=== PATIENT | female | born 1990 | race Caucasian/White ===

== ENCOUNTER 2023-02-07 14:19 | Outpatient (CLI) | payer MEDICAID, SELFPAY ==
--- NOTE | 2023-02-07 14:00 | DI.RAD_ITS ---
Exam(s) XR KNEE RT 3V AP,LAT,JOHNNY EXAM: XR KNEE RT 3V AP,LAT,JOHNNY CLINICAL HISTORY: RIGHT KNEE PAIN. TECHNIQUE: 2D digital imaging was performed. COMPARISON: No exams were available for comparison FINDINGS: 3 views There is no evidence of fracture or obvious joint effusion. No joint space narrowing. No that it os seous lesions. Sclerotic density outer aspect of medial femoral condyle has appearance of benign [place]. No osteophytes. Bone density normal. Soft tissue swelling laterally. This may be in the region of the biceps femora cyst component of the lateral collateral ligament complex. IMPRESSION: No significant osseous findings nor obvious joint effusion. Lateral soft tissue findings as described above, possibly related to the lateral collateral ligament complex. DATA REPOSITORY: RADIATION DOSE DELIVERED:
== END 2023-02-07 14:20 | disposition home or self-care (01) ==
LOC: DIORS 14:19
PROVIDERS: PCP Registered Nurse; Referring Provider Registered Nurse; Visit Provider Student in an Organized Health Care Education/Training Program
DX: M25.561 Pain in right knee (principal)
CPT/HCPCS: 73562

== ENCOUNTER 2023-02-14 01:47 | Outpatient (CLI) | payer MEDICAID, SELFPAY ==
--- NOTE | 2023-02-14 15:30 | DI.MRI_ITS ---
Exam(s) MR LOWER JOINT RT WO EXAM: MR LOWER JOINT RT WO CLINICAL HISTORY: eval for chronic LCL versus distal IT band injury,internal derangement,. TECHNIQUE: Multiplanar multisequence MRI was performed. COMPARISON: CR XR KNEE RT 3V AP,LAT,JOHNNY from 02/07/2023 FINDINGS: BONES: There is no fracture or contusion pattern. JOINTS: No joint effusion is present. Articular cartilage: Patellofemoral joint: Articular cartilage is unremarkable. Medial femoral tibial joint: Articular cartilage is unremarkable. Lateral femoral tibial joint: Articular cartilage is unremarkable. TENDONS: Extensor mechanism: Unremarkable. Medial retinaculum: Unremarkable. Lateral retinaculum: Unremarkable. Popliteus: Unremarkable. MUSCLES: Unremarkable. MENISCI: The medial meniscus is unremarkable. The lateral meniscus shows high signal in the body the re is adjacent multiloculated cystic collection measuring roughly 2.5 cephalo caudad by 0.7 cm transv erse by 2 cm AP.. SOFT TISSUES: Unremarkable. LIGAMENTS: Anterior Cruciate: Unremarkable. Posterior Cruciate: Unremarkable. Medial Collateral:Unremarkable. Lateral Collateral: Unremarkable. OTHER: IMPRESSION: Tear of the body of the lateral meniscus with adjacent meniscal cyst. No ligament tear. DATA REPOSITORY:
== END 2023-02-14 02:07 ==
LOC: DI 01:47
PROVIDERS: PCP Registered Nurse; Visit Provider Student in an Organized Health Care Education/Training Program
DX: M23.061 Cystic meniscus, other lateral meniscus, right knee (principal)
CPT/HCPCS: 73721

== ENCOUNTER 2023-04-27 06:12 | Day surgery (SDC) | payer OTHER, SELFPAY ==
--- NOTE | 2023-03-08 07:35 | W.PM.DSUDISC ---
Discharge Plan Disposition Patient Disposition: Home Discharge Details Attending Provider: Walter Ward Primary Care Provider: JO-ANN VIDALES Home Meds and New Rx's Prescriptions: No Action cholecalciferol (vitamin D3) 25 mcg (1,000 unit) capsule 25 mcg PO DAILY magnesium chloride 64 mg tablet,delayed release (DR/EC) 64 mg PO DAILY Donna 24 Fe 1 mg-20 mcg (24)/75 mg (4) tablet 1 tab PO DAILY fluoxetine 60 mg tablet 60 mg PO DAILY omeprazole 10 mg capsule,delayed release(DR/EC) 10 mg PO DAILY lorazepam 1 mg tablet 1 mg PO DAILY PRN acetylcysteine [NAC] 600 mg capsule 600 mg PO DAILY Discharge Orders Discharge Orders: Discharge Order (Routine); Ordered 03/08/23 Ordered By: Walter Ward
--- NOTE | 2023-03-08 07:35 | W.PM.OP ---
Operative Note Operative Note Refer to Anesthesia Record
--- NOTE | 2023-03-08 09:27 | PDOC.ANES ---
Date of service: 03/08/23 Time of Service: 09:27 Anesthesia Note Report Anesthesia Note: Patient reporting diffuse hives of unknown origin startign last night. Discussed with Radha Collier and Jeannette Ward related to new onset hives and decision made to postpone surgery. Recommended patient document extent of hives, take a benadryl and watch. Recommended if hives worsen or symptoms worsen to call 911 or go to ER. Office will coordinate rescheduling surgery.
[2023-04-27] VITALS (15 sets, daily range): BP systolic 88–128; BP diastolic 36–83; PULSE 73–93; RESP 12–24; TEMP 36.2–36.7; O2SAT 95–100; BMI 32.8
[2023-04-27] MEDS: Lactated Ringers 1,000 ML 30 ML IV (06:46)
--- NOTE | 2023-04-27 06:46 | W.ANESPRE ---
General Info Date of Service Date Performed: 04/27/23 Height: 5 ft 2 in Weight: 81.3 kg Body Mass Index (BMI): 32.8 Surgical Procedure: Operation Date: 04/27/23 07:40 Proposed Procedure Side Surgeon p Knee Arthroscopy, Possible Lateral Meniscus Repair, Possible Para-meniscal Cyst Excision Right Walter Ward MD Meds Allergies and Home Medications Allergies Allergy/AdvReac Type Severity Reaction Status Date / Time bacitracin Allergy Intermediate Hives Verified 04/27/23 06:28 Penicillins Allergy Intermediate Hives Verified 04/27/23 06:28 Home Medication Medication Instructions Recorded cholecalciferol (vitamin D3) 25 25 mcg PO DAILY 02/07/23 mcg (1,000 unit) capsule fluoxetine 60 mg tablet 60 mg PO DAILY 02/07/23 lorazepam 1 mg tablet 1 mg PO DAILY PRN 02/07/23 magnesium chloride 64 mg 64 mg PO DAILY 02/07/23 (magnesium chloride) tablet,delayed release norethindrone 1 mg-ethinyl 1 tab PO DAILY 02/07/23 estradiol 20 mcg (24)-iron 75 mg (4) tablet (Donna 24 Fe) omeprazole 10 mg capsule,delayed 10 mg PO DAILY 02/07/23 release acetylcysteine 600 mg capsule (NAC) 600 mg PO DAILY 03/06/23 aspirin 81 mg capsule 81 mg PO DAILY prevent blood clot 04/27/23 14 days #14 caps naproxen 250 mg tablet 250 - 500 mg PO BID PRN moderate 04/27/23 pain and swelling #40 tabs oxycodone 5 mg tablet 5 - 10 mg PO .q4-6h PRN severe 04/27/23 pain #18 tabs Current Visit Medications: Current Medications Generic Name Dose Route Start Last Admin Trade Name Freq PRN Reason Stop Dose Admin Ringer's Solution 1,000 mls @ 30 mls/hr 04/27/23 06:00 IV 05/26/23 23:59 INFUSION STUART Cefazolin Sodium/Dextrose 2 gm in 50 mls @ 100 mls/hr 04/27/23 06:00 Ancef Duplex IVPB 04/27/23 16:00 PREOP STUART IV Miscellaneous Supplies 1 each 04/27/23 06:00 Iv Access IV 05/26/23 23:59 DIRECTED STUART Sodium Chloride 0 ml 04/27/23 06:00 Normal Saline Flush 10 Ml Syr IV 05/26/23 23:59 PRN PRN Sodium Chloride 0 ml 04/27/23 06:00 Normal Saline 10 Ml Vial IJ 05/26/23 23:59 DIRECTED PRN Sterile Water 0 ml 04/27/23 06:00 Water,Injection,Sterile 10 Ml Vial IJ 05/26/23 23:59 DIRECTED PRN PFSH Active Problems Active Problems: Problem Status Onset Code Cyst of lateral meniscus of right knee M23.000 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 states she had kidney blockage removed 1995-per pt states she has not had any issues since then History of surgery on wrist dequervains synovitis (B) Tobacco Smoking/Tobacco Use Status: Never Alcohol Alcohol Intake: current Alcohol intake frequency: a few times a month Substance Use Substance use: Never Substance use type: does not use Vital Signs and Lab Results Vital Signs Most Recent Vital Signs in EMR: Most Recent Vital Signs Temp Pulse Resp BP Pulse Ox 36.2 C L 93 H 16 124/83 97 04/27/23 06:21 04/27/23 06:21 04/27/23 06:21 04/27/23 06:21 04/27/23 06:21 Point of Care Results Point of Care Results: POC- Test(urine) Negative 04/27/23 06:21 Lab Results Blood Type / Crossmatch: No Data to Display Complete Blood Count: No Data to Display Complete Metabolic Panel: No Data to Display Liver Function Panel: No Data to Display Coagulation Panel: No Data to Display Cardiac Panel: No Data to Display Arterial Blood Gas: No Data to Display Venous Blood Gas: No Data to Display Pancreas Panel: No Data to Display Thyroid Panel: No Data to Display Infectious Disease: No Data to Display Blood Cultures: No Data to Display Toxicology Panel: No Data to Display Panel: No Data to Display Anesthesia Assessment and Plan Anesthesia History Personal History: No History of Anesthesia Complications Family History: No Family History of Anesthesia Complications Exercise Tolerance Exercise Tolerance: Metabolic Equivalents>4 Pertinent Negatives Pertinent Negatives: No Symptoms of GERD Cardiac & Pulmonary Exam Cardiac Exam: Normal S1/S2 Heart Sounds Pulmonary Exam: Clear Bilateral Breath Sounds Implantable Cardiac Device Does patient have a Pacemaker or an ICD?: No Airway Exam Known Difficult Airway: No Mallampati Class: 2 Mouth Opening: Normal (> 3cm) Thyromental Distance: Greater than 3 cm Neck Range of Motion: Full ROM Neck Circumference: Normal Teeth Condition: Normal Dentition ASA Classification ASA Score: ASA 2 Emergency Case?: No NPO Status NPO Status: NPO Clears >2 hours, Solids >8 hours Status Status: Negative HCG Anesthesia Plan Resuscitation Status: Full Code Anesthesia Technique: General Anesthesia Airway Planned: LMA Monitors Used: Standard Monitors
--- NOTE | 2023-04-27 07:05 | PDOC.DSDIS_ITS ---
Date of service: 04/27/23 Time of Service: 10:00 Discharge Plan Disposition Patient Disposition: Home Condition: Stable Discharge Details Attending Provider: Walter Ward Primary Care Provider: JO-ANN VIDALES Home Meds and New Rx's Prescriptions: New aspirin 81 mg capsule 81 mg PO DAILY 14 Days Qty: 14 0RF naproxen 250 mg tablet 250 - 500 mg PO BID PRN (Reason: moderate pain and swelling) Qty: 40 0RF oxycodone 5 mg tablet 5 - 10 mg PO .q4-6h PRN (Reason: severe pain) Qty: 18 0RF Continued cholecalciferol (vitamin D3) 25 mcg (1,000 unit) capsule 25 mcg PO DAILY magnesium chloride 64 mg tablet,delayed release (DR/EC) 64 mg PO DAILY Donna 24 Fe 1 mg-20 mcg (24)/75 mg (4) tablet 1 tab PO DAILY fluoxetine 60 mg tablet 60 mg PO DAILY omeprazole 10 mg capsule,delayed release(DR/EC) 10 mg PO DAILY lorazepam 1 mg tablet 1 mg PO DAILY PRN acetylcysteine [NAC] 600 mg capsule 600 mg PO DAILY Discharge Instructions Additional Instructions: Surgery: Right knee arthroscopy with lateral menisco-capsular repair and open para-meniscal cyst excision Activity: Weightbearing in full extension-only for 6 weeks. Use crutches as nee ded to protect knee. Seated/ non-weight bearing flexion 0-90 degrees maximum for 6 weeks. 120 degrees maximum flexion for 8 weeks. Spin/bike after 8 weeks. No weighted deeper flexion (squats, lunges) for 10 weeks. Prescriptions: Aspirin 81 mg take 1 daily starting tomorrow to prevent a blood clot for 14 days Naproxen 250 mg take 1-2 every 12 hours with a meal as needed for moderate pain Oxycodone 5 mg take 1-2 every 4-6 hours as needed for severe pain You may use [id number] Tylenol (acetaminophen) as needed for mild pain. These pain medications may be taken all at once or in different combinations as needed. Also, recommend Colace (docusate) as a stool softener as surgery and pain medicine cause constipation. You may try [id number] diphenhydramine (Benadryl) 25-50 mg nightly as a sleep aid Dressings: Leave dressing in place for 3 days. May then remove and leave open to air or cover incisions with Band-Aids. Leave the sticky Steri-Strips in place until they fall off or remove them after you shower. May shower after 5 days. Follow-up: 10-[address] Ward You may take off the leg compression stockings this evening at home. You may also leave them on a few days longer if you have a history of leg swelling or edema. Let us know right away if you develop any redness, drainage, fevers, chest pain, or trouble breathing. Do not drink alcohol or drive for at least 24 hours after anesthesia. Please call the office during business hours with any questions or concerns. Discharge Orders Discharge Orders: Discharge Order (Routine); Ordered 04/27/23 Ordered By: Walter Ward DS: Diagnosis Discharge Diagnosis (1) Cyst of lateral meniscus of right knee: Status: Acute (2) Derangement of lateral meniscus of right knee due to old injury: Status: Acute
--- NOTE | 2023-04-27 07:08 | ROE_ITS ---
Date of service: 04/27/23 Time of Service: 07:30 Operative Note Operative Note DATE OF PROCEDURE: 04/27/23 PRE-OP DIAGNOSIS: Right knee 1. Lateral meniscus tear 2. Chronic lateral para-meniscal cyst POST-OP DIAGNOSIS: same PROCEDURE: Right knee 1. Arthroscopic partial lateral meniscectomy, CPT #41859 2. Open lateral para?meniscal cyst excision, CPT #51808 3. Open lateral menisco-capsular repair, CPT #91592 SURGEON: Walter Ward [employer]: Marie Brumfield Refer to Anesthesia Record PATHOLOGY: none sent TOURNIQUET TIME: 0 Patient was transported to: PACU Patient's condition: stable Indications: Please see complete medical record for details. Findings: Exam under anesthesia: Obvious lateral meniscal cyst prominence. Full range of motion, stable varus valgus Margot. Slight valgus alignment. Arthroscopic findings: Intact articular cartilage, ACL, medial meniscus. White zone lateral meniscus body small radial tear. Procedure Description: In the operating room, general anesthesia was induced. The patient was positioned supine on the operating room table. All bony prominences were well- padded. Preoperative antibiotics were administered. The knee was prepped and draped in the usual sterile fashion. The correct patient, procedure, and side of the procedure were all verified prior to incision. Exam under anesthesia was performed. 10 cc of 0.5% bupivacaine containing epinephrine was infiltrated about the planned anteromedial and anterolateral knee arthroscopy portals. The portals were established and a complete diagnostic arthroscopy was performed with relevant findings detailed above. The lateral meniscus was thoroughly inspected and probed alternate viewing from both the anteromedial anterolateral portals over the side and in the [id number] position. There was a small white zone radial central body tear. There was no propagation or connection of this tear or another tear into the intrasubstance body degeneration seen on MRI or the known multiloculated chronic lateral parameniscal cyst. The white zone tear was trimmed with meniscal biters and shaver used to establish a smooth contour. Care was taken to preserve as much meniscus tissue as possible. The meniscus remnant was probed and found to have a stable margin, stable root, and no other tears. To treat the intrasubstance degeneration, an 18-gauge needle was then passed from direct lateral through the capsule and into the red zone meniscus tissue about the body of the meniscus. A single skin puncture was used followed by multiple punctures through the meniscocapsular margin into the red zone of the meniscus. The white zone was avoided. The knee was copiously irrigated with arthroscopic fluid, fluid was clear, and then all fluid was drained from the knee. The knee was positioned over the side at about 90 degrees of flexion. The proximal fibula was palpated and marked. A curvilinear lateral incision along the central lateral joint line and distal IT band was planned, centered over the palpable multiloculated cyst, clearly anterior to the biceps femoris and also the peroneal nerve, it was preinjected with another 10 cc of 0.5% bupivacaine containing epinephrine. Skin was incised, the IT band over the joint and cyst was exposed and cleared of soft tissue. The inferior margin of the IT band was incised in line with the fibers readily exposing gelatinous cystic material. The IT band incision was extended distally towards Amalia's tubercle and slightly more proximally as needed to expose the underlying cyst. A small rongeur suction and forceps were used to remove cyst soft tissue as well as the containing gelatinous material. Pressure suction irrigation were used to remove all available material. Palpation revealed smaller cystic areas along the posterior and proximal margins below the IT band and were carefully excised with the rongeur. Along the anterior lateral proximal tibia the removal of cyst wall was exposed the bone and as the cystic structure was completely removed the capsular margin of the lateral meniscus and a Shelby was used to carefully remove the cystic structure along the inferior margin of the lateral meniscus somewhat centrally to anteriorly, similar to the submeniscal arthrotomy done during anterior lateral plateau surgery. With the meniscus protected with a Shelby all remaining cystic structure that could be appreciated was removed. The wound was thoroughly irrigated. The meniscus was then allowed back into place and its capsular rim sutured to inferior capsular tissue as part of a menisco-capsular repair using 2-0 Monocryl [id number] interrupted stitches. Separate deep capsular layer superior and inferior to the joint, which had been preserved, were were repaired in a watertight fashion using 0 Monocryl interrupted figure of 8. The next separate IT band longitudinal split was closed using 0 Vicryl interrupted taking care not to over?tension this layer. Subcutaneous tissue was closed using 2-0 Monocryl buried interrupted followed by 3-0 Monocryl subcuticular running. The anteromedial and anterolateral portals were closed using 3-0 Monocryl in a buried interrupted fashion. Mastisol, Steri-Strips, and 4 x 4 gauze were applied over the incisions followed by sterile soft roll. The knee was then wrapped gently with an DEEPTI comressive bandage. The patient awoke from anesthesia without complication and was transferred to the recovery room in a stable condition. Knee immobilizer was then fit.
[2023-04-27] MEDS: ceFAZolin 2 GM/50 ML BAG IVPB (07:39)
[2023-04-27] MEDS: Bupivacaine 0.5% Pres-Free W/EPI 30 ML VIAL (08:02)
[2023-04-27] MEDS: EPINEPHrine 30 MG/30 ML VIAL (08:05)
[2023-04-27] MEDS: ePHEDrine 25 MG/5 ML Syringe IVP (09:53)
[2023-04-27] MEDS: fentaNYL 100 MCG/2 ML VIAL IVP (10:08)
--- NOTE | 2023-04-27 10:34 | W.ANESPOSTOP ---
Postoperative Evaluation Date, Time and Location Date Performed: 04/27/23 Time Performed: 10:16 Patient Location: PACU Vital Signs Most Recent Imported Vital Signs: Most Recent Vital Signs Temp Pulse Resp BP Pulse Ox 36.6 C 80 15 109/55 L 98 04/27/23 10:20 04/27/23 10:20 04/27/23 10:20 04/27/23 10:20 04/27/23 10:20 Pain Score Most Recent Pain Score: Most Recent Pain Score Pain Level 3 04/27/23 10:20 Assessment Mental Status: Awake (Alert & Oriented to Patient Baseline) Airway and Respiratory Function: Patent airway with normal (patient baseline) respiratory exam Cardiovascular Function: Hemodynamically Stable Hydration Status: Adequately Hydrated Nausea & Vomiting: No Nausea or Vomiting Pain: Pain is tolerable per patient Peripheral Nerve Block: Patient did not receive a nerve block
[2023-04-27] MEDS: oxyCODONE 5 MG TAB PO ×2 (10:49→12:21)
[2023-04-27] MEDS: Ketorolac 15 MG/ML VIAL IVP (13:35)
[2023-04-27] MEDS: Normal Saline Flush 10 ML SYR IV (13:41)
[2023-04-27] MEDS: oxyCODONE-CR 20 MG TABCR PO (14:30)
== END 2023-04-27 15:35 | disposition home or self-care (01) ==
PROVIDERS: PCP Registered Nurse; Visit Provider Student in an Organized Health Care Education/Training Program
PROC: (CPT 29870; principal; 2023-04-27 07:30)
DX: M23.000 Cystic meniscus, unspecified lateral meniscus, right knee (principal); M23.200 Derangement of unspecified lateral meniscus due to old tear or injury, right knee; F41.8 Other specified anxiety disorders
CPT/HCPCS: 27347; 27403; J0131; J0690; J1100; J1885; J2001; J2250; J2270; J2405; J3010

== ENCOUNTER 2024-01-02 15:16 | Outpatient (REF) | payer OTHER, SELFPAY ==
[2024-01-02 16:36] LABS: Abs Immature Grans 0.02 10^3/uL (0.0-0.06); Absolute Basophil Count 0.05 10^3/uL (0.0-0.2); Absolute Eosinophil Count 0.19 10^3/uL (0.0-0.7); Absolute Lymphocyte Count 2.71 10^3/uL (1.2-3.4); Absolute Neutrophil Count 4.57 10^3/uL (1.2-6.7); Basophils % 0.6; Eosinophils % 2.3; HCT 38.6 % (36.0-46.0); HGB 13.7 g/dL (11.2-15.7); Immature Grans % 0.2; Lymphocytes % 33.3; MCHC 35.5 % (32.0-36.0); MCV 85 fL (80-95); MPV 9.4 fL (8.0-11.0); Monocytes % 7.4; Neutrophils % 56.2; Platelet Count 476 10^3/uL (130-400); RBC 4.57 10^6/uL (3.93-5.22); RDW 12.6 % (11.7-14.6); RDW-SD 38.5 fL; WBC 8.14 10^3/uL (4.4-10.8)
[2024-01-04 09:54] LABS: IgE 18 IU/mL (<158)
== END 2024-01-02 15:17 | disposition home or self-care (01) ==
LOC: LBN 15:16
PROVIDERS: PCP Registered Nurse; Visit Provider Physician Assistant Surgical
DX: J45.909 Unspecified asthma, uncomplicated (principal)
CPT/HCPCS: 82785; 85025

== ENCOUNTER 2024-01-18 06:06 | Outpatient (CLI) | payer OTHER, SELFPAY ==
[2024-01-18] MEDS: Methacholine 100 MG VIAL IH (16:45)
[2024-01-18] MEDS: Albuterol HFA 18 GM 200 PUFF INH IH (16:45)
[2024-01-18] MEDS: Inhaler, Assist Device 1 EACH MC (16:46)
--- NOTE | 2024-01-21 11:12 | W.PFT ---
Date of service: 01/18/24 Time of Service: 14:52 Pulmonary Function Test Result Indications: Cough Interpretation Spirometry: No baseline airflow limitation. There was a 24% decrease in FEV1 with administration of 16mg/mL methacholine. Impression Borderline positive methacholine challenge Clinical Correlation therefore is recommended.
== END 2024-01-18 06:07 | disposition home or self-care (01) ==
LOC: RT 06:06
PROVIDERS: PCP Registered Nurse; Visit Provider Student in an Organized Health Care Education/Training Program
DX: R05.9 Cough, unspecified (principal)
CPT/HCPCS: 94060; 94070; J7674